=== PATIENT | male | born 1965 | race Caucasian/White ===

== ENCOUNTER → 2021-05-18 | Outpatient (CLI) | payer BC ==
[~2021-05-18] MED LIST: BIOTIN300 MCG PO; CARDIZEM CD120 MG PO; CRESTOR20 MG PO; EMERGEN-C 500500 MG PO; OSTERA TABLET1 EACH PO; PANTOPRAZOLE SO40 MG PO; SUCRALFATE1 GM/10 ML PO; ZESTRIL40 MG PO
== END ==
LOC: KOH-I 08:00
DX: M54.2 Cervicalgia (principal); M50.31 Other cervical disc degeneration, high cervical region
CPT/HCPCS: 72141